=== PATIENT | male | born 1985 | race Caucasian/White ===

== ENCOUNTER 2019-04-07 05:52 | Observation (INO) ==
[2019-04-07] MEDS ORDERED: ONDANSETRON 4 MG/2 ML VIAL IVP ONE (06:05)
[2019-04-07] MEDS ORDERED: ASPIRIN 81 MG (BABY) CHEWABLE TABLET PO ONE (06:05)
[2019-04-07] MEDS ORDERED: Sodium Chloride 0.9% 1,000 ML PRIMARY IV ONE ×2 (06:05→07:50)
[2019-04-07] MEDS ORDERED: FAMOTIDINE 20 MG/2 ML VIAL IVP ONE (06:07)
[2019-04-07 06:13] LABS: BASOPHILS # (AUTO) 0.01 10*3/UL; BASOPHILS % (AUTO) 0.1 % (0-1); EOSINOPHILS # (AUTO) 0.02 10*3/UL; EOSINOPHILS % (AUTO) 0.3 % (0-8); Hematocrit [HCT] 49.3 % (42.0-52.0); LYMPHOCYTES # (AUTO) 1.22 10*3/uL; MEAN CORPUSCULAR HGB CONC 34.5 g/dL (33-37); MEAN CORPUSCULAR VOLUME 86.2 FL (80-90); MEAN PLATELET VOLUME 9.1 FL (7.4-12.2); MONOCYTES # (AUTO) 0.82 10*3/UL (0.3-0.8); MONOCYTES % (AUTO) 10.5 % (5-15); NEUTROPHILS # (AUTO) 5.68 10*3/UL; RED BLOOD COUNT 5.72 10^6/uL (4.70-6.10)
[2019-04-07 06:15] LABS: PLATELET MORPHOLOGY COMMENT NORMAL MORPHOLOGY (NORM); RBC MORPHOLOGY COMMENT NORMAL MORPHOLOGY (NORM); WBC MORPHOLOGY COMMENT NORMAL MORPHOLOGY (NORM)
[2019-04-07 06:29] LABS: BLOOD UREA NITROGEN 16 mg/dL (7-22); BUN/CREATININE RATIO 14.54 (6-20); SERUM ALBUMIN 4.6 g/dL (3.5-4.8)
[2019-04-07] MEDS: ONDANSETRON 4 MG/2 ML VIAL IVP PRN ×3 (10:04→20:46)
[2019-04-07] MEDS: MORPHINE SULFATE 2 MG/1 ML IVP PRN ×2 (10:04→20:40)
[2019-04-07] MEDS: Lactated Ringers 1,000 ML PRIMARY IV SCH ×2 (13:30→22:05)
[2019-04-08 05:29] LABS: BLOOD UREA NITROGEN 13 mg/dL (7-22); BUN/CREATININE RATIO 14.44 (6-20); SERUM ALBUMIN 3.3 g/dL (3.5-4.8)
[2019-04-08] MEDS: Lactated Ringers 1,000 ML PRIMARY IV SCH (06:50)
[2019-04-08] MEDS ORDERED: Loperamide Tab 2 MG TABLET PO PRN (07:55)
[2019-04-08] MEDS: Loperamide Tab 2 MG TABLET PO PRN ×2 (10:37→14:25)
[2019-04-08] MEDS ORDERED: Ondansetron ODT Tab 8 MG TAB PO ONE (13:19)
[2019-04-08 13:24] VITALS: BP 147/88; RESP 20; TEMP 98.2; O2SAT 94
== END 2019-04-08 14:47 | disposition home or self-care (01) ==
LOC: ER 05:52 → MED/SURG 05:52
PROVIDERS: ADMIT Surgery; ATTEND Surgery